=== PATIENT | male | born 1955 | race Caucasian/White ===

== ENCOUNTER 2025-01-08 15:31 | Emergency (ER) | payer MEDICARE, OTHER ==
[~2025-01-08] VITALS: Ht 182.9 cm; Wt 106.6 kg
[~2025-01-08 15:31] MED LIST: AMMO385C4 TP; APIX5TAB PO; ASCO500T10 PO; ASPI-1443 PO; BUME1TAB6 PO; CICL6.6S22 TP; COLC0.6C3 PO; CYAN-37 PO; DESO15CR30 TP; EMPA25TA PO; GLIP10TA16 PO; LEVO125C5 PO; MAGN400T53 PO; METO-391 PO; MONT-39 PO; OMEP20CA12 PO; PREG50CA64 PO; ROPI3TAB21 PO; ROSU20TA98 PO; SACU1TAB7 PO; SEMA1PEN3 SQ; ZOLP5TAB16 PO
[2025-01-08 15:52] LABS: IMMATURE GRANULOCYTE ABSOLUTE 0.01 K/uL (0-1); NUCLEATED RED BLOOD CELLS 0.0 % (0.0-0.19); PLATELET COUNT (AUTO) 167 K/uL (130-400); RED BLOOD CELL COUNT(AUTO) 6.22 MIL/uL (4.50-6.20); RED CELL DISTRIBUTION WIDTH 15.6 % (11.0-15.5); WHITE BLOOD COUNT (AUTO) 7.0 K/uL (4.8-10.8)
[2025-01-08 16:05] LABS: INR 1.06 (0.85-1.15)
[2025-01-08 16:07] LABS: CREATININE 1.2 mg/dL (0.5-1.3); GLOMERULAR FILTR. RATE CALC 65.0 mL/min (>90); GLUCOSE,RANDOM 130.0 mg/dL (70-105); SODIUM SERUM 142.0 mmol/L (136-145); UREA NITROGEN, BLOOD 21.0 mg/dL (7-18)
[2025-01-08 16:12] LABS: CREATINE KINASE, TOTAL 101.0 U/L (21-232)
--- NOTE | 2025-01-08 16:39 | EKG ---
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 : 1955 Requested By: GAMAL SWAN Order Number: [id number] Reading MD: Harshad Parisi Measurements Intervals [place] Rate: 76 P: 0 MI: 0 QRS: 202 QRSD: 141 T: 63 QT: 439 QTc: 493 Interpretive Statements Afib/flutter and ventricular-paced rhythm Biventricular paced rhythm Compared to ECG 06/03/2024 05:10:00 Sinus rhythm no longer present First degree AV block no longer present Left-axis deviation no longer present Left bundle-branch block no longer present ST (T wave) deviation no longer present Electronically Signed On 01-08-2025 16:40:07 CDT by Harshad Parisi Please click the below link to view image of tracing.
--- NOTE | 2025-01-08 16:44 | HMCIMG ---
EXAM: CR Chest, 1 View. CLINICAL HISTORY: cp COMPARISON: None provided. FINDINGS: LUNGS: There is no mass, infiltrate, or acute pulmonary abnormality. PLEURAL SPACES: No evidence of pleural effusion or pneumothorax. MEDIASTINUM: The cardiomediastinal silhouette is within normal limits. Pacemaker evident BONES: No acute osseous abnormality. IMPRESSION: No acute cardiopulmonary pathology is evident. /[place]
[2025-01-08] MEDS: ASPIRIN 325MG TAB PO ONE (17:29)
[2025-01-08 18:48] VITALS: BP 131/60; PULSE 74; RESP 17; TEMP 98.8; O2SAT 98
--- NOTE | 2025-01-08 18:55 | ERN ---
General Chief Complaint: Chest Pain Stated Complaint: CHEST PAIN Time Seen by MD: 15:34 Time Seen by Midlevel: 15:34 Source: patient History of Present Illness Initial Comments Patient is a 69-year-old male presenting to the emergency department for evaluation of left-sided chest pain and left-sided facial numbness that started just prior to arrival. On arrival patient reports his symptoms improving. Denies any other symptoms Allergies: Coded Allergies: Antihistamines - Alkylamine (Unverified Allergy, Unknown, 05/29/24) Sulfa (Sulfonamide Antibiotics) (Unverified Allergy, Unknown, HIVES, 05/29/24) Home Meds Reported Medications Zolpidem Tartrate (Zolpidem Tartrate) 5 Mg Tablet, 10 MG PO DAILY, TAB 05/29/24 Pregabalin (Pregabalin) 50 Mg Capsule, 1 CAP PO TID MDD 3 Capsule(s) for 30 Da ys, #90 CAP 0 Refills 05/29/24 Rosuvastatin Calcium (Rosuvastatin Calcium) 20 Mg Tablet, 20 MG PO HS, TAB 05/29/24 Ropinirole HCl (Ropinirole HCl) 3 Mg Tablet, 1 TAB PO HS for 30 Days, #30 TAB 0 Refills 05/29/24 Semaglutide (Ozempic) 1 Mg/0.75 Ml (4 Mg/3 Ml) Pen.injctr, 1 MG SQ QWEEK for 30 Days, #3 ML 0 Refills 05/29/24 Omeprazole (Omeprazole) 20 Mg Capsule.dr, 1 CAP PO DAILY for 30 Days, #30 CAP 0 Refills 05/29/24 Montelukast Sodium (Montelukast Sodium) 10 Mg Tablet, 1 TAB PO HS for 30 Days, #30 TAB 0 Refills 05/29/24 Metoprolol Succinate (Metoprolol Succinate) 50 Mg Tab.er.24h, 50 MG PO BID, TAB 05/29/24 Magnesium Oxide (Magnesium Oxide) 400 Mg Tablet, 1 TAB PO DAILY for 30 Days, #30 TAB 0 Refills 05/29/24 Levothyroxine Sodium (Levothyroxine) 125 Mcg Capsule, 1 CAP PO DAILY for 30 Days, #30 CAP 0 Refills 05/29/24 Empagliflozin (Jardiance) 25 Mg Tablet, 12.5 MG PO DAILYLUNCH, TAB 2/1/25 Glipizide (Glipizide) 10 Mg Tablet, 1 TAB PO DAILYLUNCH for 30 Days, #60 TAB 0 Refills 05/29/24 Sacubitril/Valsartan (Entresto 49 mg-51 mg Tablet) 49 Mg-51 Mg Tablet, 1 TAB PO BID for 30 Days, #60 TAB 0 Refills 05/29/24 Apixaban (Eliquis) 5 Mg Tablet, 1 TAB PO BID for 30 Days, #60 TAB 0 Refills 05/29/24 Desonide (Desonide) 0.05 % Cream..g., 1 APPL TP BID for 5 Days, #15 GM 0 Refills apply to affected area(s) 05/29/24 Colchicine (Colchicine) 0.6 Mg Capsule, 1 CAP PO BID for 30 Days, #60 CAP 0 Refills 05/29/24 Ciclopirox (Ciclopirox) 8 % Solution, 1 APPL TP HS, ML 0 Refills apply to affected area(s) 05/29/24 Cyanocobalamin (Vitamin B-12) (B-12) 1,000 Mcg Tablet, 1 TAB PO DAILY for 30 Day s, #30 TAB 0 Refills 05/29/24 Bumetanide (Bumetanide) 1 Mg Tablet, 1 TAB PO DAILY for 30 Days, #30 TAB 0 Ref ills 05/29/24 Aspirin (Aspirin EC) 81 Mg Tablet.dr, 1 TAB PO DAILY for 30 Days, #30 TAB 0 Refills 05/29/24 Ascorbic Acid (Ascorbic Acid) 500 Mg Tablet, 1 TAB PO DAILY for 30 Days, #30 TAB 0 Refills 05/29/24 Ammonium Lactate (Ammonium Lactate) 12 % Cream..g., 1 APPL TP DAILY for 30 Days, #385 GM 0 Refills 05/29/24 Past Medical History Past Medical History: A-Fib, Cancer, Diabetes-Type II, High Cholesterol, Heart Disease, Stroke Past Surgical History: Cholecystectomy Surgical History Other: RT LEG SX, LT LEG SX, RT EYE SX, BILAT SHOULDER SX, KNEE SX, ABD HERNIA ROS Dictation CONSTITUTIONAL: Negative except for HPI HEAD/FACE: Negative except for HPI EENT: Negative except for HPI RESPIRATORY: Negative except for HPI GASTROINTESTINAL/ABDOMINAL: Negative except for HPI GENITOURINARY: Negative except for HPI MUSCULOSKELETAL: Negative except for HPI INTEGUMENTARY: Negative except for HPI NEUROLOGICAL/PSYCH: Negative except for HPI HEMATOLOGIC/LYMPHATIC: Negative except for HPI All Systems Negative, Except as noted above. 13 point review of systems assessed and all negative except for above. Physical Exam Physical Exam Dictation Vital Signs reviewed General Appearance: Alert, oriented x 3, no acute distress, well developed, nourished. Head and Face: non-traumatic. Eyes: PERRL, pink conjunctivas, eyelid no trauma, anterior chamber with arcus senilis. Ears: Pinnas intact and no signs of trauma or erythema ear canals clear and no discharge TM no erythema Nose: No discharge, no bleeding. Oropharynx: Mouth normal, tongue pink, pharynx clear,no erythema, tonsils no exudates, no abscesses noted, mucous membrane moist Neck: Supple, non-tender, no thyromegaly, no masses, no JVD, no bruits Breast:Deferred Chest:No tenderness, no crepitus, no paradoxical movement, no retractions Lungs:Clear, well-ventilated, symmetric, no rales, no wheezing, no rhonchi, no stridor, good breath sounds bilaterally Heart: Regular rate, regular rhythm, no murmur, no gallops Vascular: no peripheral edema, Abdomen: Soft, positive bowel sounds, nondistended, no guarding, nontender, no rebound, no masses no hepatomegaly, no splenomegaly, no Alonso's sign, no hernias. Rectal: Deferred Genital: Deferred Neurological: Normal speech, motor function intact, sensory function intact Musculoskeletal: Neck nontender, full range of motion, back nontender, full range of motion, Extremities: nontender, full range of motion Skin: Color pink, dry, no turgor, no rash, no lacerations, no abrasions, no contusions. Lymphatic: Deferred Results Laboratory and Microbiology Lab and Micro Result Laboratory Tests Test 01/08/25 15:46 01/08/25 16:44 White Blood Count 7.0 K/uL (4.8-10.8) Red Blood Count 6.22 MIL/uL (4.50-6.20) H Hemoglobin 17.8 g/dL (14.0-18.0) Hematocrit 55.4 % (42-54) H Mean Corpuscular Volume 89.1 fL (79-99) Mean Corpuscular Hemoglobin 28.6 pg (27.0-33.0) Mean Corpuscular Hemoglobin Concent 32.1 g/dL (32.0-36.0) Red Cell Distribution Width 15.6 % (11.0-15.5) H Platelet Count 167 K/uL (130-400) Mean Platelet Volume 11.6 fL (7.5-10.5) H Immature Granulocyte % (Auto) 0.1 % (0-1) Neutrophils (%) (Auto) 61.4 % (40.0-77.0) Lymphocytes (%) (Auto) 22.9 % (21.0-51.0) Monocytes (%) (Auto) 12.1 % (3.0-13.0) Eosinophils (%) (Auto) 2.4 % (0.0-8.0) Basophils (%) (Auto) 1.1 % (0.0-5.0) Neutrophils # (Auto) 4.3 K/uL (1.8-7.7) Lymphocytes # (Auto) 1.6 K/uL (1.0-4.8) Monocytes # (Auto) 0.9 K/uL (0.1-1.0) Eosinophils # (Auto) 0.17 K/uL (0.00-0.70) Basophils # (Auto) 0.08 K/uL (0.00-0.20) Absolute Immature Granulocyte (auto 0.01 K/uL (0-1) Nucleated Red Blood Cells 0.0 % (0.0-0.19) Prothrombin Time 11.2 SEC (9.6-11.6) Prothromb Time International Ratio 1.06 (0.85-1.15) Activated Partial Thromboplast Time 30.1 SEC (26.3-35.5) Sodium Level 142 mmol/L (136-145) Potassium Level 4.4 mmol/L (3.5-5.1) Chloride Level 104 mmol/L (101-111) Carbon Dioxide Level 32 mmol/L (21-32) Blood Urea Nitrogen 21 mg/dL (7-18) H Creatinine 1.2 mg/dL (0.5-1.3) Glomerular Filtration Rate Calc 65 mL/min (>90) Random Glucose 130 mg/dL (70-105) H Total Calcium 9.3 mg/dL (8.5-10.1) Magnesium Level 2.60 mg/dL (1.80-2.40) H Total Creatine Kinase 101 U/L (21-232) Troponin I High Sensitivity 8 ng/L (4-75) 8 ng/L (4-75) B-Type Natriuretic Peptide 71 pg/mL (0-100) Labs Reviewed?: Yes MDM MDM: Differential diagnosis: Acute coronary syndrome, electrolyte abnormality, dehydration, intracranial bleed There are no social concerns with this patient. Prescription drug management Prescriptions will include: None Medical management and examination interpretation discussions were had by me with other qualified healthcare professionals as indicated for the patient's care. ED Course Orders Procedure Category Date Status Time Cbc With Differential LAB 01/08/25 Complete 15:34 Basic Metabolic Panel LAB 01/08/25 Complete 15:34 Troponin I High LAB 01/08/25 Complete Sensitivity 15:34 Creatine Kinase, Total LAB 01/08/25 Complete 15:34 B-Type Natriuretic LAB 01/08/25 Complete Peptide 15:34 Chest 1vw RAD 01/08/25 Resulted 15:34 Magnesium LAB 01/08/25 Complete 15:34 Pt And Ptt LAB 01/08/25 Complete 15:34 12 Lead Ekg Tracing- EKG 01/08/25 Resulted Technical 15:39 Troponin I High LAB 01/08/25 Complete Sensitivity 16:39 Ct Head/Brain W/O CT 01/08/25 Taken Contrast 16:50 Aspirin 325mg Tab PHA 01/08/25 Complete (Aspirin 325mg Tab) 17:00 Current Medications Medications (Trade) Dose Ordered Sig/Noel Route PRN Reason Start Time Stop Time Status Last Admin Dose Admin Aspirin (Aspirin 325mg Tab) 325 mg ONCE ONCE PO 01/08/25 17:00 01/08/25 17:01 DC 01/08/25 17:29 Vital Signs Date Time Temp Pulse Resp B/P (MAP) Pulse Ox O2 Delivery O2 Flow Rate FiO2 01/08/25 17:51 98.8 74 17 147/85 98 Room Air* 0 21 01/08/25 15:46 98.8 82 17 161/94 98 Room Air* 0 21 01/08/25 15:32 98.4 82 20 169/102 98 Room Air 0 HEART Score Response (Comments) Value History: Low suspicion (0) 0 EKG: Normal 0 Age: > 65yrs (+2) 2 Risk Factors: 1-2 risk factors (+1) 1 Initial Troponin: Normal limit (0) 0 HEART Score Risk: Low Risk for MACE (1-3) Total 3 DX & DISP Disposition: Discharge Departure Impression: Primary Impression: Non-cardiac chest pain Condition: Stable Additional Instructions: You were seen today for chest pain and left-sided facial numbness. Your blood work today is unremarkable. Blood work showed no signs of infection or signs of anemia. Your kidney function is normal. Electrolytes were normal. Your EKG did not show any signs of a heart attack. Your two sets of cardiac enzymes (troponin) were normal. Your chest x-ray was normal. Your CT scan of the brain was normal. At this time there are no signs of an active heart attack. You will need to follow up with your primary care doctor next week for repeat evaluation. Referrals: MANUEL SARAVIA MD (PCP) I have reviewed the case, and I agree with, Diagnosis and Plan I performed the substantive portion of the visit. I have reviewed and personally made and approve the management plan that is documented in the note by myself or the DEIDRA. I acknowledge for responsibility for the patient's management plan. ANTHONY HARVEY Jan 08, 2025 18:55
--- NOTE | 2025-01-08 20:18 | HMCIMG ---
EXAM: CT Head Without IV contrast. CLINICAL HISTORY: left facial numbness TECHNIQUE: Axial computed tomography images of the head/brain without intravenous contrast. COMPARISON: None provided. FINDINGS: BRAIN: No evidence of acute hemorrhage. No mass lesion. No CT evidence for acute territorial infarct. No midline shift or extra-axial collections. VENTRICLES: No hydrocephalus. ORBITS: The orbits are unremarkable. SINUSES AND MASTOIDS: The paranasal sinuses and mastoid air cells are clear. BONES: No fracture. SOFT TISSUES: Unremarkable. IMPRESSION: No acute intracranial abnormality. /[place]
== END 2025-01-08 20:24 | disposition home or self-care (01) ==
LOC: EDH 15:31
DX: R07.89 Other chest pain (principal); E11.9 Type 2 diabetes mellitus without complications; E78.00 Pure hypercholesterolemia, unspecified; I48.91 Unspecified atrial fibrillation; Z79.01 Long term (current) use of anticoagulants; Z79.82 Long term (current) use of aspirin; Z79.85 Long-term (current) use of injectable non-insulin antidiabetic drugs; Z79.890 Hormone replacement therapy; Z79.899 Other long term (current) drug therapy; Z86.73 Personal history of transient ischemic attack (TIA), and cerebral infarction without residual deficits; Z88.2 Allergy status to sulfonamides; Z90.49 Acquired absence of other specified parts of digestive tract; Z95.0 Presence of cardiac pacemaker
CPT/HCPCS: 36415; 70450; 71045; 80048; 82550; 83735; 83880; 84484; 85025; 85610; 85730; 93005; 99285